=== PATIENT | female | born 1960 | race Caucasian/White ===

== ENCOUNTER 2016-08-12 21:42 | Inpatient (IN) | payer MEDICARE, OTHER ==
[2016-08-12] MEDS ORDERED: HYDROmorphone 1 MG/ML 1 ML SYRINGE ONE (22:48)
[2016-08-12] MEDS ORDERED: ETOMIDATE 2 MG/ML 10 ML VIAL ONE (22:48)
[2016-08-13] MEDS ORDERED: HYDROmorphone 1 MG/ML 1 ML SYRINGE IVP PRN ×3 (00:50→09:05)
[2016-08-13] MEDS ORDERED: HYDROmorphone 1 MG/ML 1 ML SYRINGE ONE ×2 (00:52→01:00)
[2016-08-13] MEDS ORDERED: LORazepam 2 MG/ML SYRINGE IV PRN (00:52)
[2016-08-13] MEDS ORDERED: LORazepam 2 MG/ML SYRINGE ONE (01:00)
[2016-08-13] MEDS ORDERED: SODIUM CHLORIDE 0.9% 1,000 ML BAG ONE (01:00)
--- NOTE | 2016-08-13 08:27 | P.HPOR ---
History of Present Illness H&P Date: 08/13/16 Chief Complaint: Right hip dislocation This is a 55-year-old female who presented to the emergency department last evening after falling and sustaining injury to her right hip. The patient has history of total hip arthroplasty and has had multiple dislocations in the past. The patient reportedly was intoxicated on arrival. Attempts were made to reduce the hip under conscious sedation in the emergency department. These attempts were unsuccessful. She is admitted to our service for close reduction in the operating room. Past Medical History Past Medical History: Osteoarthritis (OA) Additional Past Medical History / Comment(s): Several bilateral hip dislocations , DJD, cervical fracture with surgery, cervical pain, [place] bilaterally. History of Any Multi-Drug Resistant Organisms: None Reported Past Surgical History: Section, Hysterectomy, Joint Replacement, Orthopedic Surgery Additional Past Surgical History / Comment(s): cervical surgery with plates and screws, total right knee, right shoulder rotator cuff repair, bilateral hip replacement with L hip revision, bilateral closed reductions on hips, L hip open reduction, L4-L5 fusion Past Anesthesia/Blood Transfusion Reactions: No Reported Reaction Past Psychological History: Anxiety Additional Psychological History / Comment(s): Pt states she is currently staying in a motel. She states she lives here and there and quite often stays with a friend-Jon Weber. She states she owns a walker but it is somewhere in a storage unit. She does not drive-she has friends who take her to appts. Smoking Status: Current every day smoker Past Alcohol Use History: Daily, Heavy Additional Past Alcohol Use History / Comment(s): Pt states she started smoking at age 27 yrs and is a 1-2 ppd smoker. She drinks varies usually beers a few days a week. Per ED she has had 130oz beer throughout today Past Drug Use History: None Reported - Past Family History Mother Family Medical History: Cancer Additional Family Medical History / Comment(s): Mother at age 60 yrs from nonsmall cell colon cancer. Father Family Medical History: No Reported History Additional Family Medical History / Comment(s): Father is 74 yrs old and healthy. Medications and Allergies Allergies Allergy/AdvReac Type Severity Reaction Status Date / Time warfarin sodium AdvReac Hallucinati Verified 12/02/15 21:04 [From Coumadin] ons Physical Examination This is a 55-year-old female who appears to still be intoxicated. She has had Ativan as well. She is unable to answer questions appropriately. Her hip is internally rotated and shortened. She is unable to follow commands during the exam. Pedal pulses +2/4. Results X-rays of the pelvis reveal a dislocated right total hip arthroplasty. No fracture identified. Assessment and Plan (1) Alcohol intoxication Status: Acute (2) Hip dislocation, right Status: Acute Plan: The clinical and x-ray findings are discussed with the patient and her nurse. It is recommended that she be taken to surgery for close reduction of the right hip. She may be discharged to home after successful reduction.
--- NOTE | 2016-08-13 08:29 | XR ---
EXAMINATION TYPE: XR Hip Limited RT DATE OF EXAM: 08/13/2016 8:18 AM COMPARISON: NONE HISTORY: Pain TECHNIQUE: One view submitted FINDINGS: There is no evidence of erosive change or acute fracture. There is a posterior dislocation of the femoral component of the right hip prostheses. Surgical change involving the lumbar spine noted. Incomplete assessment for fractures or dislocation. IMPRESSION: 1. Posterior dislocation of the femoral head component of the prostheses..
[2016-08-13 08:45] LABS: CH 34.4; CHCM 32.9; HCT 35.5 % (34.0-46.0); HDW 2.35; HGB 11.9 gm/dL (11.4-16.0); MCH 35.2 pg (25.0-35.0); MCHC 33.5 g/dL (31.0-37.0); Macrocytosis Slight; Mean Platelet Volume 8.3; RBC 3.39 m/uL (3.80-5.40); RDW 13.1 % (11.5-15.5); WBC 4.4 k/uL (3.8-10.6)
[2016-08-13] MEDS ORDERED: IV FLUID CONTINUATION 400 ML IV ONE (08:47)
[2016-08-13] MEDS ORDERED: LIDOCAINE 1% INJ 10MG/ML (20 ML MDV) ONE (08:47)
[2016-08-13] MEDS ORDERED: PHENYLEPHRINE-0.9% NACL SYG 1 MG/10 ML SYRINGE ONE (08:47)
[2016-08-13] MEDS ORDERED: DEXAMETHASONE SOD PHOS (MDV) 100 MG/10 ML VIAL ONE (08:47)
[2016-08-13] MEDS ORDERED: PROPOFOL 10 MG/ML 20 ML VIAL IV ONE (08:47)
[2016-08-13] MEDS ORDERED: HYDROcodone/APAP 5-325MG 1 EACH TAB PO PRN ×2 (09:05)
[2016-08-13 09:12] VITALS: TEMP 97.9
[2016-08-13] MEDS ORDERED: LACTATED RINGERS 1,000 ML IV SCH (09:15)
[2016-08-13 09:20] VITALS: RESP 16
--- NOTE | 2016-08-13 09:33 | XR ---
EXAMINATION TYPE: XR Hip Limited RT DATE OF EXAM: 08/13/2016 9:24 AM COMPARISON: 08/12/2016 HISTORY: Dislocation TECHNIQUE: 1V FINDINGS: Anatomic alignment now noted IMPRESSION: Post reduction.
[2016-08-13 12:10] VITALS: BP 106/72; PULSE 95
--- NOTE | 2016-08-13 21:02 | FL ---
EXAMINATION TYPE: FL guidance operating room DATE OF EXAM: 08/13/2016 9:24 AM FLUOROSCOPY Fluoroscopy time of 9 seconds was used during closed reduction of the right hip. 1 image/s document/ s the procedure.
--- NOTE | 2016-08-15 10:39 | OP ---
DATE OF SERVICE: 08/13/2016 SURGEON: STORM BEAR DO DRAGLINE ENGINEER: RINA Arcos PREOPERATIVE DIAGNOSIS: Recurrent dislocation right total hip. POSTOPERATIVE DIAGNOSIS: Recurrent dislocation right total hip. OPERATION: Reduction dislocation recurrent right total hip dislocation. ANESTHESIA: ESTIMATED BLOOD LOSS: SPECIMENS REMOVED: COMPLICATIONS: OPERATIVE FINDINGS: DESCRIPTION OF PROCEDURE: The patient was taken to the operative suite and placed in supine position. Patient was placed under general anesthesia was performed by the Department of Anesthesiology. Xray brought into position. Reduction of right hip was performed. Right leg was taken through gentle range of motion and remained stable. She was placed in an abductor pillow splint and transferred to recovery room in satisfactory postop condition. GROSS PATHOLOGY: Recurrent dislocation right total hip. She is scheduled at this time by her physician for further reconstructive care. BREANNE
--- NOTE | 2016-08-17 14:38 | XR ---
EXAMINATION TYPE: AP view pelvis and 2 views right hip DATE OF EXAM: 08/13/2016 8:26 AM COMPARISON: 11/07/2015 HISTORY: 55-year-old female with fall FINDINGS: Lower lumbar fusion hardware is present with corresponding laminectomies. Partially visualized total left hip arthroplasty. There is a superior dislocation of the right hip replacement. No acute fractur e is seen. IMPRESSION: Posterior-superior dislocation right hip prosthesis.
== END 2016-08-13 13:30 | disposition home or self-care (01) | DRG 561 ==
LOC: EC 08-13 00:17 → 3SUR 08-13 00:48
PROVIDERS: ADMIT Orthopaedic Surgery; ATTEND Orthopaedic Surgery
PROC: 0SS9XZZ Reposition Right Hip Joint, External Approach (ICD-10-PCS; principal; 2016-08-13 08:14)
DX: T84.020A Dislocation of internal right hip prosthesis, initial encounter (principal); F41.9 Anxiety disorder, unspecified; F10.129 Alcohol abuse with intoxication, unspecified; F17.200 Nicotine dependence, unspecified, uncomplicated; M19.90 Unspecified osteoarthritis, unspecified site; M54.2 Cervicalgia; H91.93 Unspecified hearing loss, bilateral; Z96.643 Presence of artificial hip joint, bilateral; Y79.2 Prosthetic and other implants, materials and accessory orthopedic devices associated with adverse incidents
CPT/HCPCS: 73501; 73502; 80320; 85027; 93005; 99285

== ENCOUNTER 2016-08-22 01:46 | Emergency (ER) | payer MEDICARE, OTHER ==
[2016-08-22 01:54] VITALS: RESP 18; TEMP 97.1
[2016-08-22] MEDS ORDERED: ORPHENADRINE 30 MG/ML 2 ML VIAL IM STA (02:03)
[2016-08-22] MEDS ORDERED: Acetaminophen-Codeine 300-30mg TAB PO STA (02:03)
--- NOTE | 2016-08-22 02:06 | ED ---
Fall HPI - General Chief Complaint: Fall Stated Complaint: Fall, back pain Time Seen by Provider: 08/22/16 01:57 Source: patient, RN notes reviewed Mode of arrival: wheelchair Limitations: no limitations - History of Present Illness Initial Comments: 55-year-old female presents emergency Department chief complaint upper back pain. Patient states she went to fall in states that she caught herself with her arms states that she jason her back. She states that fall hit the ground she only fell towards all. Patient denies any head injury no LOC. Patient states she's having some stiffness to her upper back. Denies chest pain or shortness breath, neck pain, headache or dizziness. Patient states she did not want a fall because she has bilateral hip replacements and she's had multiple dislocations. Patient has no pain meds at home. - Related Data Previous Rx's Medication Instructions Recorded Acetaminophen-Codeine 300-30mg 1 tab PO Q4H PRN #14 tablet 08/22/16 [Tylenol #3] Allergies Allergy/AdvReac Type Severity Reaction Status Date / Time warfarin sodium AdvReac Hallucinati Verified 08/13/16 08:31 [From Coumadin] ons Review of Systems ROS Statement: Those systems with pertinent positive or pertinent negative responses have been documented in the HPI. ROS Other: All systems not noted in ROS Statement are negative. Past Medical History Past Medical History: Osteoarthritis (OA) Additional Past Medical History / Comment(s): Several bilateral hip dislocations , DJD, cervical fracture with surgery, cervical pain, [place] bilaterally. History of Any Multi-Drug Resistant Organisms: None Reported Past Surgical History: Section, Hysterectomy, Joint Replacement, Orthopedic Surgery Additional Past Surgical History / Comment(s): cervical surgery with plates and screws, total right knee, right shoulder rotator cuff repair, bilateral hip replacement with L hip revision, bilateral closed reductions on hips, L hip open reduction, L4-L5 fusion Past Anesthesia/Blood Transfusion Reactions: No Reported Reaction Past Psychological History: Anxiety Additional Psychological History / Comment(s): Pt states she is currently staying in a motel. She states she lives here and there and quite often stays with a friend-Jon Weber. She states she owns a walker but it is somewhere in a storage unit. She does not drive-she has friends who take her to [employer]. Smoking Status: Current every day smoker Past Alcohol Use History: Daily, Heavy Additional Past Alcohol Use History / Comment(s): Pt states she started smoking at age 27 yrs and is a 1-2 ppd smoker. She drinks varies usually beers a few days a week. Per ED she has had 130oz beer throughout today Past Drug Use History: None Reported - Past Family History Mother Family Medical History: Cancer Additional Family Medical History / Comment(s): Mother at age 60 yrs from nonsmall cell colon cancer. Father Family Medical History: No Reported History Additional Family Medical History / Comment(s): Father is 74 yrs old and healthy. General Exam Limitations: no limitations General appearance: alert, in no apparent distress Head exam: Present: atraumatic, normocephalic, normal inspection Neck exam: Present: normal inspection, full ROM. Absent: tenderness, meningismus, lymphadenopathy Respiratory exam: Present: normal lung sounds bilaterally. Absent: respiratory distress, wheezes, rales, rhonchi, stridor Cardiovascular Exam: Present: regular rate, normal rhythm, normal heart sounds. Absent: systolic murmur, diastolic murmur, rubs, gallop, clicks Extremities exam: Present: normal inspection, full ROM, normal capillary refill. Absent: tenderness, pedal edema, joint swelling, calf tenderness Back exam: Present: full ROM, tenderness (Mild tenderness of the thoracic region over the muscles), paraspinal tenderness. Absent: vertebral tenderness Neurological exam: Present: alert, oriented X3, CN II-XII intact Course Vital Signs 08/22/16 01:51 Temperature 97.1 F L Pulse Rate 87 Respiratory 18 Rate Blood Pressure 100/70 O2 Sat by Pulse 97 Oximetry Medical Decision Making - Medical Decision Making 55-year-old female presented emergency from for upper back pain. Patient is having muscle spasms secondary to falling and catching herself. Patient did not fall to have fracture of her back. Patient has no bony tenderness. She was given pain medication and discharge. Disposition Clinical Impression: Fall, Thoracic back pain Disposition: HOME SELF-CARE Condition: Stable Instructions: Back Pain (ED) Additional Instructions: Please return to the Emergency Department if symptoms worsen or any other concerns. Prescriptions: Acetaminophen-Codeine 300-30mg [Tylenol #3] 1 tab PO Q4H PRN #14 tablet PRN Reason: pain Referrals: Nonstaff,Physician [Primary Care Provider] - 1-2 days Time of Disposition: 02:05
[2016-08-22 02:26] VITALS: BP 126/92; PULSE 99
== END 2016-08-22 02:25 | disposition home or self-care (01) ==
LOC: EC 01:46
DX: M54.6 Pain in thoracic spine (principal); F17.200 Nicotine dependence, unspecified, uncomplicated; Z88.8 Allergy status to other drugs, medicaments and biological substances; W01.0XXA Fall on same level from slipping, tripping and stumbling without subsequent striking against object, initial encounter
CPT/HCPCS: 99283 ×2; 96372 ×2; J2360; 71020; 99284

== ENCOUNTER 2016-08-22 04:36 | Emergency (ER) | payer MEDICARE, OTHER ==
[2016-08-22 04:46] VITALS: BP 133/89; PULSE 84; RESP 20; TEMP 97.5
--- NOTE | 2016-08-22 04:56 | ED ---
General Adult HPI - General Chief complaint: Shortness of Breath Stated complaint: pain, lexie Time Seen by Provider: 08/22/16 04:40 Source: patient, RN notes reviewed Mode of arrival: ambulatory Limitations: no limitations - History of Present Illness Initial comments: Is a 55-year-old female comes in after having already been seen in the emergency department. Patient refused to leave the waiting room and reregistered eventually. Patient complains that the pain in her upper back is so bad that she is now having hard time breathing even though she is oxygenating at 98%. Patient is able to move her arms above her head to remove her shirt and platelet put on account without problem. Patient denies any chest pain patient denies palpitations. Patient states she's not short of breath but it hurts to breathe. Patient denies any central spinal pain. Patient denies any lower back pain. Patient states the pain is in her upper left back just medial to the scapula. - Related Data Previous Rx's Medication Instructions Recorded Acetaminophen-Codeine 300-30mg 1 tab PO Q4H PRN #14 tablet 08/22/16 [Tylenol #3] Allergies Allergy/AdvReac Type Severity Reaction Status Date / Time warfarin sodium AdvReac Hallucinati Verified 08/22/16 04:46 [From Coumadin] ons Review of Systems ROS Statement: Those systems with pertinent positive or pertinent negative responses have been documented in the HPI. ROS Other: All systems not noted in ROS Statement are negative. Past Medical History Past Medical History: Osteoarthritis (OA) Additional Past Medical History / Comment(s): Several bilateral hip dislocations , DJD, cervical fracture with surgery, cervical pain, [place] bilaterally. History of Any Multi-Drug Resistant Organisms: None Reported Past Surgical History: Section, Hysterectomy, Joint Replacement, Orthopedic Surgery Additional Past Surgical History / Comment(s): cervical surgery with plates and screws, total right knee, right shoulder rotator cuff repair, bilateral hip replacement with L hip revision, bilateral closed reductions on hips, L hip open reduction, L4-L5 fusion Past Anesthesia/Blood Transfusion Reactions: No Reported Reaction Past Psychological History: Anxiety Additional Psychological History / Comment(s): Pt states she is currently staying in a motel. She states she lives here and there and quite often stays with a friend-Jon Weber. She states she owns a walker but it is somewhere in a storage unit. She does not drive-she has friends who take her to appts. Smoking Status: Current every day smoker Past Alcohol Use History: Daily, Heavy Additional Past Alcohol Use History / Comment(s): Pt states she started smoking at age 27 yrs and is a 1-2 ppd smoker. She drinks varies usually beers a few days a week. Per ED she has had 130oz beer throughout today Past Drug Use History: None Reported - Past Family History Mother Family Medical History: Cancer Additional Family Medical History / Comment(s): Mother at age 60 yrs from nonsmall cell colon cancer. Father Family Medical History: No Reported History Additional Family Medical History / Comment(s): Father is 74 yrs old and healthy. General Exam - General Exam Comments Initial Comments: GENERAL: Patient is well-developed and well-nourished. Patient is nontoxic and well- hydrated and is in mild distress. ENT: Neck is soft and supple. No significant lymphadenopathy is noted. Oropharynx is clear. Moist mucous membranes. Neck has full range of motion without eliciting any pain. EYES: The sclera were anicteric and conjunctiva were pink and moist. Extraocular movements were intact and pupils were equal round and reactive to light. Eyelids were unremarkable. PULMONARY: Unlabored respirations. Good breath sounds bilaterally. No audible rales rhonchi or wheezing was noted. CARDIOVASCULAR: There is a regular rate and rhythm without any murmurs gallops or rubs. ABDOMEN: Soft and nontender with normal bowel sounds. SKIN: Skin is clear with no lesions or rashes and otherwise unremarkable. NEUROLOGIC: Patient is alert and oriented x3. Cranial nerves II through XII are grossly intact. Motor and sensory are also intact. Normal speech, volume and content. Symmetrical smile. MUSCULOSKELETAL: Normal extremities with adequate strength and full range of motion. No lower extremity swelling or edema. No calf tenderness. Patient has some tenderness just medial to the left scapula. Patient has full range of motion of the upper extremities was able to remove her shirt over her head both arms without problem LYMPHATICS: No significant lymphadenopathy is noted PSYCHIATRIC: Normal psychiatric evaluation. Normal interpersonal interactions appears functionally intact in deals appropriately with others. No signs of depression. No signs of anxiety. Limitations: no limitations Course Vital Signs 08/22/16 04:42 Temperature 97.5 F L Pulse Rate 84 Respiratory 20 Rate Blood Pressure 133/89 O2 Sat by Pulse 99 Oximetry Medical Decision Making - Medical Decision Making Chest x-ray shows no acute abnormality Disposition Clinical Impression: Thoracic back pain Disposition: HOME SELF-CARE Instructions: Thoracic Pain (ED) Referrals: Nonstaff,Physician [Primary Care Provider] - 1-2 days Time of Disposition: 05:37
[2016-08-22] MEDS ORDERED: KETOROLAC 60 MG/2 ML VIAL IM STA (04:57)
--- NOTE | 2016-08-22 05:49 | XR ---
EXAM: XR Chest, 2 Views CLINICAL HISTORY: Reason: Difficulty breathing TECHNIQUE: Frontal and lateral views of the chest. COMPARISON: Chest radiography 12/02/15. FINDINGS: Lungs: Unremarkable. No consolidation. Pleural space: Unremarkable. No pneumothorax. Heart: Unremarkable. No cardiomegaly. Mediastinum: Unremarkable. Bones/joints: Multilevel degenerative changes of the spine, mild-to- moderate. Old healed left fifth rib fracture laterally. IMPRESSION: No acute disease.
== END 2016-08-22 05:48 | disposition home or self-care (01) ==
LOC: EC 04:36
DX: M54.6 Pain in thoracic spine (principal); R06.02 Shortness of breath; F17.200 Nicotine dependence, unspecified, uncomplicated; Z88.8 Allergy status to other drugs, medicaments and biological substances
CPT/HCPCS: 71020; 99284; 96372; J1885